=== PATIENT | female | born 1965 | race Caucasian/White ===

== ENCOUNTER 2018-07-02 13:39 | Emergency (ER) | payer MEDICAID ==
[2018-07-02] MEDS ORDERED: TOPICAL LIDOCAINE W/ EPI 5 ML TOP ONE (13:41)
--- NOTE | 2018-07-02 13:46 | Emergency Department Record ---
History of Present Illness - General Chief Complaint: Fall Injury Stated Complaint: FALL INJURY Time Seen by Provider: 07/02/18 13:40 Source: Patient Mode of Arrival: Ambulatory Limitations: No limitations - History of Present Illness Initial Comments: 52 yo female presents by EMS. She tripped over a child's [id number] injuring her right knee. She is on Xarelto. She did not injury her head, neck, chest, back or any other areas. She thinks she is not up to date on her tetanus status. She otherwise has not complaints and has been at her baseline health. She denies and joint pain. She denies numbness or tingling. She moves the knee at her normal level. Complaint: Fall -: Minutes(s) Fall From: Standing When Fall Occurred: Just prior to arrival Fall Witnessed: Yes, by family Place Fall Occurred: Home Loss of Consciousness: None Prolonged Down Time?: No Symptoms Prior to Fall: None Location - Extremities: Right: Knee Quality: Other (No significant pain) Associated Symptoms: Denies - Abiodun Coma Scale Eye Response: (4) Open spontaneously Motor Response: (6) Obeys commands Verbal Response: (5) Oriented Abiodun Total: 15 - Related Data Previous Rx's Medication Instructions Recorded Cephalexin [Keflex] 500 mg PO TID #21 cap 07/02/18 Allergies Allergy/AdvReac Type Severity Reaction Status Date / Time No Known Drug Allergies Allergy Verified 07/02/18 13:40 Review of Systems Constitutional: Denies: Chills, Fever, Malaise, Weakness Eyes: Denies: Eye discharge ENT: Denies: Congestion, Throat pain Respiratory: Denies: Cough, Dyspnea Cardiovascular: Reports: Other (History of atrial fibrillation). Denies: Chest pain, Palpitations, Syncope Endocrine: Denies: Fatigue Gastrointestinal: Denies: Diarrhea, Nausea, Vomiting Genitourinary: Denies: Dysuria Musculoskeletal: Denies: Arthralgia, Back pain, Joint swelling, Myalgia Skin: Reports: Other (Laceration). Denies: Bruising, Change in color Neurological: Denies: Headache Psychiatric: Denies: Anxiety Hematological/Lymphatic: Denies: Easy bleeding, Easy bruising Past Medical History - SOCIAL HISTORY Smoking Status: Former smoker - RESPIRATORY Hx Respiratory Disorders: Yes Hx Asthma: Yes Comment:: bipap - CARDIOVASCULAR Hx Cardio Disorders: Yes Hx Irregular Heartbeat: Yes (afib) - NEURO Hx Neuro Disorders: No - GI Hx GI Disorders: No - Hx Genitourinary Disorders: No - ENDOCRINE Hx Endocrine Disorders: Yes Hx Diabetes: Yes Hx Thyroid Disease: Yes - MUSCULOSKELETAL Hx Musculoskeletal Disorders: No - PSYCH Hx Psych Problems: No - HEMATOLOGY/ONCOLOGY Hx Hematology/Oncology Disorders: No Family Medical History Family Hx Comment (NOT TO BE USED IN PLACE OF ITEMS BELOW): mother-afib Hx Cancer: Father Hx Diabetes: Father, Brother/Sister Hx Stroke: Mother Physical Exam - General General Appearance: Alert, Oriented x3, Cooperative, No acute distress Limitations: No limitations - Head Head exam: Atraumatic, Normocephalic, Normal inspection Head exam detail: negative: Abrasion, Contusion, Hematoma, Laceration - Eye Eye exam: Normal appearance, PERRL. negative: Conjunctival injection, Periorbital swelling, Scleral icterus - ENT ENT exam: Normal exam Ear exam: Normal external inspection Nasal Exam: Normal inspection Mouth exam: Normal external inspection - Neck Neck exam: Normal inspection, Full ROM. negative: Lymphadenopathy, Tenderness - Respiratory Respiratory exam: Normal lung sounds bilaterally. negative: Accessory muscle use, Chest wall tenderness, Decreased breath sounds, Prolonged expiratory, Respiratory distress, Rhonchi, Stridor, Wheezes - Cardiovascular Cardiovascular Exam: Regular rate, Normal rhythm, Normal heart sounds. negative : Diastolic murmur, Systolic murmur Peripheral Pulses: 2+: Radial (R), Radial (L) - GI/Abdominal GI/Abdominal exam: Soft. negative: Distended, Guarding, Rebound, Rigid, Tenderness - Rectal Rectal exam: Deferred - exam: Deferred - Extremities Extremities exam: Full ROM, Normal capillary refill. negative: Normal inspection, Joint swelling, Tenderness Image of Full Body: 1 - 4cm linear laceration, clean without obvious contamination, no visible bone , FB, or tendon - Back Back exam: Reports: Full ROM. Denies: CVA tenderness (R), CVA tenderness (L), Paraspinal tenderness, Tenderness, Vertebral tenderness - Neurological Neurological exam: Alert, Oriented X3 - Psychiatric Psychiatric exam: Normal affect, Normal mood. negative: Agitated, Anxious - Skin Skin exam: Other (laceration 3.5cm) Course - Reevaluation(s) Reevaluation #1: The XR was reviewed No FB or obvious fracture 07/02/18 14:24 Procedure: 4 cm laceration of the anterior leg/knee on the right Wound was cleaned and prepped in sterile fashion with Hibaclens, no residual FB , bone or tendon identified on examination. The wound was copiously irrigated with NS Wound was anesthetized with 4 mL of 1% Lidocaine with epinephrine The laceration was repaired with 7 sutures in interrupted fashion. 3-0 Prolene Patient tolerated the the procedure well without complications. We discussed home care, reasons for immediate return if any concerns, and suture removal in 12-14 days We discussed minimizing bending. Due to her size a knee immobilizer is neither feasible or safe Steristrips were placed as well 07/02/18 15:22 Disposition Disposition: Discharge Clinical Impression: Laceration Disposition: Home, Self-Care Condition: (1) Good Instructions: Laceration (ED) Additional Instructions: Return to the ED if you have any pain, redness, pus, or signs that concern you for infection The sutures should be evaluated for removal in 12- 14 days Do your best not bend your knee Prescriptions: Cephalexin [Keflex] 500 mg PO TID #21 cap Forms: Patient Portal Access Time of Disposition: 14:27 Quality - Quality Measures Quality Measures: N/A - Blood Pressure Screening Does Patient Have Any of the Following: Active Dx of HTN Blood Pressure Classification: Hypertensive Reading Systolic Measurement: 140 Diastolic Measurement: 68 Screening for High Blood Pressure: Patient Exclusion, Hx of HTN [G9744]
[2018-07-02] MEDS ORDERED: Diph,Pert(Acell),Tet Vac 0.5 ML SYR IM ONE (14:24)
--- NOTE | 2018-07-06 06:56 | RADIOLOGY REPORT ---
DATE: 07/02/2018 at 1351. EXAM: RIGHT KNEE, TWO VIEWS. HISTORY: Anterior laceration post fall. TECHNIQUE: AP and lateral views of the right knee are obtained. COMPARISON: None. ENCOUNTER: Initial. FINDINGS: There is normal bone mineralization. No definite acute fracture nor dislocation is seen. Moderate to advanced tricompartmental osteoarthritic changes are present. On the frontal view, there is a somewhat linear ossific density projecting near the level of the lateral epicondyle. No definite donor site is seen. This likely is a spur with fracture fragment. Subcutaneous edema is identified, most pronounced anteriorly. No radiopaque foreign body. IMPRESSION: 1. SOFT TISSUE SWELLING MOST PRONOUNCED ANTERIORLY. NO RADIO-OPAQUE FOREIGN BODY IDENTIFIED. 2. MODERATE TO SEVERE TRICOMPARTMENTAL OSTEOARTHRITIC CHANGES. SOMEWHAT LINEAR OSSIFIC DENSITY PROJECTING AT THE LEVEL OF THE LATERAL EPICONDYLE ON THE AP VIEW ONLY. THIS IS PROBABLY CHRONIC. AN ACUTE FRACTURE FRAGMENT IS LESS LIKELY. 3. POSSIBLE SMALL JOINT EFFUSION. Job Number: [id number] [facility]
== END 2018-07-02 14:52 | disposition home or self-care (01) ==
LOC: ER 13:39
DX: S81.011A Laceration without foreign body, right knee, initial encounter (principal); W18.09XA Striking against other object with subsequent fall, initial encounter; Y92.009 Unspecified place in unspecified non-institutional (private) residence as the place of occurrence of the external cause; I48.91 Unspecified atrial fibrillation; Z87.891 Personal history of nicotine dependence
CPT/HCPCS: 12002; 90715; 96372; 99283; 99284

== ENCOUNTER 2018-07-12 10:45 | Inpatient (IN) | payer MEDICAID ==
[2018-07-12] MEDS ORDERED: IPRATROPIUM/ALBUTEROL (0.5MG/3MG) NEB INH ONE (11:08)
--- NOTE | 2018-07-12 11:19 | Emergency Department Record ---
History of Present Illness - General Chief Complaint: Shortness of breath Stated Complaint: LILIAN Time Seen by Provider: 07/12/18 10:59 Source: Patient, Family Mode of Arrival: Wheelchair Limitations: No limitations - History of Present Illness Initial Comments: The patient is here due to a 5 day hx of a dry cough and SOB at times. She has been using her rescue inhaller with no relief. The patient denies any CP, back pain, pleuritic pain with breathing, fever, sputum, or weight gain. The patient does have a hx of morbid obesity and is on home O2. She also has a hx of Afib and is on Xarelto. MD Complaint: Cough, Shortness of breath Onset/Timin -: Days(s) Known History Of: Asthma, Other Associated Symptoms: Cough Treatments Prior to Arrival: Bronchodilator - Related Data Home Oxygen Therapy: Yes Home Oxygen Amount: 2 Liters Allergies Allergy/AdvReac Type Severity Reaction Status Date / Time No Known Drug Allergies Allergy Verified 07/12/18 10:55 Travel Screening - Travel/Exposure Within Last 30 Days Have you traveled within the last 30 days?: No - Travel/Exposure Within Last Year Have you traveled outside the [place] in the last year?: No - Additonal Travel Details Have you been exposed to anyone with a communicable illness?: No - Travel Symptoms Symptom Screening: None Review of Systems Constitutional: Reports: Malaise. Denies: Chills, Fever Eyes: Denies: Eye discharge ENT: Reports: Congestion Respiratory: Reports: Cough, Dyspnea. Denies: Hemoptysis, Stridor, Wheezes Cardiovascular: Denies: Arrhythmia, Chest pain Endocrine: Denies: Fatigue Gastrointestinal: Denies: Nausea Genitourinary: Denies: Dysuria Musculoskeletal: Denies: Arthralgia Skin: Denies: Bruising Past Medical History - SOCIAL HISTORY Smoking Status: Former smoker Alcohol Use: Rare Drug Use: None - RESPIRATORY Hx Respiratory Disorders: Yes Hx Asthma: Yes Hx Bronchitis: Yes Comment:: bipap - CARDIOVASCULAR Hx Cardio Disorders: Yes Hx Irregular Heartbeat: Yes (afib) - NEURO Hx Neuro Disorders: No - GI Hx GI Disorders: No - Hx Genitourinary Disorders: No - ENDOCRINE Hx Endocrine Disorders: Yes Hx Diabetes: Yes Hx Thyroid Disease: Yes - MUSCULOSKELETAL Hx Musculoskeletal Disorders: No - PSYCH Hx Psych Problems: No Hx Depression: Yes - HEMATOLOGY/ONCOLOGY Hx Hematology/Oncology Disorders: No Family Medical History Any Significant Family History?: No Family Hx Comment (NOT TO BE USED IN PLACE OF ITEMS BELOW): mother-afib Hx Cancer: Father Hx Diabetes: Father, Brother/Sister Hx Stroke: Mother Physical Exam - General General Appearance: Alert, Oriented x3, Cooperative, No acute distress - Head Head exam: Atraumatic, Normocephalic - Eye Eye exam: Normal appearance, PERRL - ENT Throat exam: Normal inspection. negative: Tonsillar erythema, Tonsillar exudate - Neck Neck exam: Normal inspection, Full ROM. negative: Tenderness - Respiratory Respiratory exam: Normal lung sounds bilaterally. negative: Accessory muscle use, Decreased breath sounds, Respiratory distress (The patient is speaking in full sentences with no difficulty or problems.) - Cardiovascular Cardiovascular Exam: Normal heart sounds, Irregular rhythm. negative: Regular rate, Normal rhythm - GI/Abdominal GI/Abdominal exam: Soft, Normal bowel sounds. negative: Tenderness - Extremities Extremities exam: negative: Normal inspection (There are chronic wounds to the L leg.) - Neurological Neurological exam: Alert. negative: Motor sensory deficit Course Vital Signs 07/12/18 10:47 Temperature 97.8 F Pulse Rate 72 Respiratory 18 Rate Blood Pressure 182/83 Pulse Ox 94 L - Reevaluation(s) Reevaluation #1: The patient is doing very well at this time. She is feeling better after the Neb tx. I did discuss the lab work and xray with the patient and did recommend hospital admission which she did agree to. I also did discuss the case with Dr. Mabry and he does agree with the plan. 07/12/18 12:20 Medical Decision Making - Data Complexity MDM Data: Labs Ordered and/or Reviewed, X-Ray Ordered and/or Reviewed, EKG Ordered and/or Reviewed - Lab Data Result diagrams: 07/12/18 11:25 07/12/18 11:25 - EKG Data -: EKG Interpreted by Me EKG: No Acute Changes, Unchanged From Previous - Radiology Data Radiology results: Report reviewed (CXR: Possible bilateral infiltrates with CMG and mild CHF.) Disposition Disposition: Admit Clinical Impression: CHF (congestive heart failure) Qualifiers: Heart failure type: unspecified Heart failure chronicity: unspecified Qualified Code(s): I50.9 - Heart failure, unspecified Pneumonia Qualifiers: Aspiration pneumonia type: unspecified Laterality: unspecified laterality Lung location: unspecified part of lung Disposition: Still a Patient at [facility] Decision to Admit: Admit from ER Decision to Admit Date: 07/12/18 Decision to Admit Time: 12:23 Accepting Physician: Clotilde Time Discussed w/Accepting Physician: 12:23 Condition: (2) Stable Forms: Patient Portal Access Time of Disposition: 12:23 Quality - Quality Measures Quality Measures: N/A - Blood Pressure Screening View Details: Yes Does Patient Have Any of the Following: No Blood Pressure Classification: Pre-Hypertensive BP Reading Systolic Measurement: 182 Diastolic Measurement: 83 Screening for High Blood Pressure: < Pre-Hypertensive BP, F/U Documented > [ [id number]] Pre-Hypertensive Follow-up Interventions: Referral to alternative/primary care provider.
[2018-07-12 11:32] LABS: BASO % 0.2 % (0-6); EOS % 2.3 % (0-6); GRAN % 75.9 % (47-80); HEMATOCRIT 37.7 % (35.0-47.0); HEMOGLOBIN 11.4 gm/dl (11.6-16.0); LYMPH % 15.6 % (16-45); MEAN CELL VOLUME 96.9 fl (81-97); MEAN CORPUSCULAR HEMOGLOBIN 29.3 pg (27-33); MEAN CORPUSCULAR HGB CONC 30.2 g/dl (32-36); MEAN PLATELET VOLUME 10.4 fl (7.4-10.4); PLATELET COUNT 170 K/uL (130-400); RED BLOOD COUNT 3.89 M/uL (3.80-5.40); RED CELL DISTRIBUTION WIDTH 15.2 % (11.5-14.5); WHITE BLOOD COUNT W/O DIFF 5.2 K/uL (4.2-12.2)
[2018-07-12 11:43] LABS: BLOOD UREA NITROGEN 13 mg/dL (6-20); CREATININE 0.7 mg/dL (0.5-0.9); EST GLOMERULAR FILTRATION RATE > 60 mL/min
[2018-07-12 11:44] LABS: INR 1.3; PARTIAL THROMBOPLASTIN TIME 34.4 SECONDS (24.5-39.1); PROTHROMBIN TIME (PATIENT) 12.9 SECONDS (9.5-12.1)
[2018-07-12 11:46] LABS: GLUCOSE,RANDOM 105 mg/dL (74-109)
[2018-07-12] MEDS ORDERED: FUROSEMIDE IV 40MG/4ML VIAL IVP ONE (12:09)
[2018-07-12] MEDS ORDERED: CEFTRIAXONE 1GM/50ML BAG 1 GM/50 ML BAG IVPB ONE (12:19)
[2018-07-12] MEDS ORDERED: AZITHROMYCIN 500 MG TABLET PO ONE (12:19)
[2018-07-12] MEDS ORDERED: RIVAROXABAN 20 MG TABLET PO SCH (13:51)
[2018-07-12] MEDS ORDERED: ATORVASTATIN 20 MG TABLET PO SCH (13:51)
[2018-07-12] MEDS ORDERED: ACETAMINOPHEN 325 MG TAB PO PRN (13:51)
[2018-07-12] MEDS ORDERED: LOSARTAN POTASSIUM 25 MG TABLET PO SCH (13:51)
--- NOTE | 2018-07-12 14:11 | History & Physical ---
History of Present Illness - Date of Service Date of Service for History & Physical: 07/12/18 - History of Present Illness Admitting Diagnosis: 1. Acute CHF. 2. Acute Pneumonia. History of Present Illness: SOB for 5 days with a cough and her inhaler was not helping and she came to the ED and evaluated by Dr. Winston with a diagnosis of bilateral pneumonia and CHF.BNP high and chest read as bilateral infiltrate possible pneumonia right greater than left ,cardiomegaly with minor vascular congestion. PMH home oxygen 2 liters per minute and JR with bipap at night,atrial fib on xarelto, DM type 2 on metformin,hypothyroidism, HTN,Hyperchol,Morbid obesity. patient said last echo 2014 at [facility] and saw meat dresser than but not follow with the meat dresser. Primary is Dr Morse Travel Screening - Travel/Exposure Within Last 30 Days Have you traveled within the last 30 days?: No - Travel/Exposure Within Last Year Have you traveled outside the [place] in the last year?: No - Additonal Travel Details Have you been exposed to anyone with a communicable illness?: No - Travel Symptoms Symptom Screening: None Review of Systems Reviewed: No additional complaints except as noted below Constitutional: Reports: Malaise. Denies: Chills, Fever Eyes: Denies: Eye discharge ENT: Reports: Congestion Respiratory: Reports: Cough, Dyspnea. Denies: Hemoptysis, Stridor, Wheezes Cardiovascular: Denies: Arrhythmia, Chest pain Endocrine: Denies: Fatigue Gastrointestinal: Denies: Nausea Genitourinary: Denies: Dysuria Musculoskeletal: Denies: Arthralgia Skin: Reports: Other (ulcers on legs and seeing the wound clinic appointment is next week.). Denies: Bruising Neurological: Reports: As per HPI. Denies: Abnormal gait, Confusion, Headache, Numbness, Paresthesias, Seizure, Tingling, Tremors, Vertigo, Weakness Psychiatric: Reports: As per HPI. Denies: Anxiety, Auditory hallucinations, Depression, Homicidal thoughts, Suicidal thoughts, Visual hallucinations Hematological/Lymphatic: Reports: As per HPI. Denies: Anemia, Blood Clots, Easy bleeding, Easy bruising, Swollen glands Past Medical History - SOCIAL HISTORY Smoking Status: Former smoker Alcohol Use: Rare Drug Use: None - RESPIRATORY Hx Respiratory Disorders: Yes Hx Asthma: Yes Hx Bronchitis: Yes Comment:: bipap - CARDIOVASCULAR Hx Cardio Disorders: Yes Hx Irregular Heartbeat: Yes (afib) - NEURO Hx Neuro Disorders: No - GI Hx GI Disorders: No - Hx Genitourinary Disorders: No - ENDOCRINE Hx Endocrine Disorders: Yes Hx Diabetes: Yes Hx Thyroid Disease: Yes - MUSCULOSKELETAL Hx Musculoskeletal Disorders: No - PSYCH Hx Psych Problems: No Hx Depression: Yes - HEMATOLOGY/ONCOLOGY Hx Hematology/Oncology Disorders: No Family Medical History Any Significant Family History?: No Family Hx Comment (NOT TO BE USED IN PLACE OF ITEMS BELOW): mother-afib Hx Cancer: Father Hx Diabetes: Father, Brother/Sister Hx Stroke: Mother H&P Meds/Allergies - Allergies Allergies: Allergies Allergy/AdvReac Type Severity Reaction Status Date / Time No Known Drug Allergies Allergy Verified 07/12/18 10:55 - Active Medications Active Medications: Current Medications Acetaminophen (Tylenol 325mg) 650 mg PO Q4H PRN PRN Reason: PAIN - MILD(1-4)/FEVER Albuterol/Ipratropium (Duoneb) 3 ml INH RESP.Q4H.WA ISHMAEL Atorvastatin Calcium (Lipitor) 40 mg PO QD ISHMAEL Azithromycin (Zithromax) 250 mg PO DAILY ISHMAEL Diltiazem HCl (Cardizem Cd) 240 mg PO DAILY ISHMAEL Furosemide (Lasix Iv) 20 mg IVP BIDDIUR ISHMAEL CEFTRIAXONE 1GM/50ML BAG (Ceftriaxone 1 Gm-D5w Bag) 1 gm in 50 mls @ 100 mls/ hr IVPB Q12H ISHMAEL Levothyroxine Sodium (Synthroid) 100 mcg PO DAILYTHY ISHMAEL Losartan Potassium (Cozaar) 25 mg PO QD ISHMAEL Metformin HCl (Glucophage Ir) 500 mg PO BIDINS ISHMAEL Non-Formulary Medication (Sertraline Hcl [Sertraline Hcl]) 100 mg PO QD ISHMAEL Rivaroxaban (Xarelto) 20 mg PO QD ISHMAEL Sertraline HCl (Zoloft) 50 mg PO BID ISHMAEL Physical Exam - Vital Signs Vital Signs: Vital Signs - Last 24 Hrs Temp Pulse Pulse Resp BP BP Pulse Ox 07/12/18 13:44 21 96 07/12/18 13:31 70 21 175/77 96 07/12/18 12:30 65 20 167/69 96 07/12/18 12:00 67 21 154/83 96 07/12/18 11:31 88 18 95 07/12/18 10:47 97.8 F 72 18 182/83 94 L - General General Appearance: Alert, Oriented x3, Cooperative, No acute distress Limitations: No limitations - Head Head exam: Atraumatic, Normocephalic Head exam detail: negative: Abrasion, Contusion - Eye Eye exam: Normal appearance, PERRL Pupils: Normal accommodation - ENT ENT exam: Normal exam, Mucous membranes moist, Normal external ear exam, Normal orophraynx, TM's normal bilaterally Ear exam: Normal external inspection. negative: External canal tenderness Nasal Exam: Normal inspection. negative: Discharge, Sinus tenderness Mouth exam: Normal external inspection, Tongue normal Teeth exam: Normal inspection. negative: Dental caries Throat exam: Normal inspection. negative: Tonsillar erythema, Tonsillar exudate - Neck Neck exam: Normal inspection, Full ROM. negative: Tenderness - Respiratory Respiratory exam: Normal lung sounds bilaterally, Decreased breath sounds. negative: Accessory muscle use, Respiratory distress (The patient is speaking in full sentences with no difficulty or problems.) - Cardiovascular Cardiovascular Exam: Normal heart sounds, Irregular rhythm. negative: Regular rate, Normal rhythm - GI/Abdominal GI/Abdominal exam: Soft, Normal bowel sounds. negative: Tenderness - Rectal Rectal exam: Deferred - exam: Deferred - Extremities Extremities exam: negative: Normal inspection (There are chronic wounds to the L leg.) - Back Back exam: Reports: Normal inspection, Full ROM. Denies: Muscle spasm, Rash noted, Tenderness - Neurological Neurological exam: Alert. negative: Motor sensory deficit - Psychiatric Psychiatric exam: Normal affect, Normal mood - Skin Skin exam: Dry, Intact, Normal color, Warm Results - Labs Result Diagrams: 07/12/18 11:25 07/12/18 11:25 Labs Last 24 Hours: Laboratory Results - last 24 hr 07/12/18 07/12/18 07/12/18 11:25 11:25 11:25 WBC 5.2 RBC 3.89 Hgb 11.4 L Hct 37.7 MCV 96.9 MCH 29.3 MCHC 30.2 L RDW 15.2 H Plt Count 170 MPV 10.4 Gran % 75.9 Lymphocytes % 15.6 L Monocytes % 6.0 Eosinophils % 2.3 Basophils % 0.2 PT 12.9 H INR 1.3 APTT 34.4 Sodium 141 Potassium 4.0 Chloride 103 Carbon Dioxide 27.0 Anion Gap 11.0 BUN 13 Creatinine 0.7 Estimated GFR > 60 Random Glucose 105 Calcium 9.2 Troponin T NT-Pro-B Natriuret Pep 1225.00 H Procalcitonin 07/12/18 07/12/18 11:25 11:25 WBC RBC Hgb Hct MCV MCH MCHC RDW Plt Count MPV Gran % Lymphocytes % Monocytes % Eosinophils % Basophils % PT INR APTT Sodium Potassium Chloride Carbon Dioxide Anion Gap BUN Creatinine Estimated GFR Random Glucose Calcium Troponin T < 0.010 NT-Pro-B Natriuret Pep Procalcitonin 0.076 VTE H&P Assessment - Risk for VTE Risk for VTE: Yes Risk Level: Moderate Risk Assessment Date: 07/12/18 Risk Assessment Time: 14:13 VTE Orders Placed or Will Be Placed: Yes Plan - Inpatient Certification Inpatient Certification: Admit to inpatient care: Based on my medical assessment, after consideration of patient's risk factors (age, co-morbidities and patient presenting symptoms and acuity), I expect that this patient will remain in the hospital greater than or equal to two midnights and that the services needed warrant inpatient care because:IV lasix and IV antibiotics Patient Risk Factors: [] Estimated length of stay: [3 days] The patient may reasonably be expected to be discharged or transferred to a hospital within 96 hours after admission to [facility]. Services needed: [IV lasix and IV antibiotis] Post hospital care (if known): [] I certify that my determination is in accordance with my understanding of Medicare requirements for reasonable and necessary inpatient services. 07/12/18 14:20 - Detailed Diagnosis and Plan (1) Atrial fibrillation Current Visit: Yes Status: Acute Qualifiers: Atrial fibrillation type: chronic Qualified Code(s): I48.2 - Chronic atrial fibrillation Base Code: I48.91 - UNSPECIFIED ATRIAL FIBRILLATION Priority: Medium (2) CHF (congestive heart failure) Current Visit: Yes Status: Acute Qualifiers: Heart failure type: unspecified Heart failure chronicity: unspecified Qualified Code(s): I50.9 - Heart failure, unspecified Base Code: I50.9 - HEART FAILURE, UNSPECIFIED Priority: High (3) Pneumonia Current Visit: Yes Status: Acute Qualifiers: Aspiration pneumonia type: unspecified Laterality: unspecified laterality Lung location: unspecified part of lung Base Code: J18.9 - PNEUMONIA, UNSPECIFIED ORGANISM Priority: High (4) JR treated with BiPAP Current Visit: Yes Status: Acute Base Code: G47.33 - OBSTRUCTIVE SLEEP APNEA (ADULT) (PEDIATRIC) Priority: Medium (5) Hypertension Current Visit: Yes Status: Acute Base Code: I10 - ESSENTIAL (PRIMARY) HYPERTENSION Priority: Medium (6) Hypothyroidism Current Visit: Yes Status: Acute Base Code: E03.9 - HYPOTHYROIDISM, UNSPECIFIED Priority: Medium (7) Asthma Current Visit: Yes Status: Acute Base Code: J45.909 - UNSPECIFIED ASTHMA, UNCOMPLICATED Priority: High (8) Hypercholesteremia Current Visit: Yes Status: Acute Base Code: E78.00 - PURE HYPERCHOLESTEROLEMIA, UNSPECIFIED Priority: Medium (9) Morbid obesity Current Visit: Yes Status: Acute Base Code: E66.01 - MORBID (SEVERE) OBESITY DUE TO EXCESS CALORIES Priority: Medium - Disposition return home
[2018-07-12] MEDS: IPRATROPIUM/ALBUTEROL (0.5MG/3MG) NEB INH SCH ×3 (14:23→23:52)
[2018-07-12] MEDS ORDERED: SERTRALINE HCL 50 MG TABLET PO SCH ×2 (14:30→22:00)
[2018-07-12] MEDS: DILTIAZEM 240 MG CAP CR PO SCH (15:26)
[2018-07-12] MEDS ORDERED: FUROSEMIDE IV 20MG/2ML VIAL IVP SCH (16:00)
[2018-07-12] MEDS ORDERED: METFORMIN 500 MG TABLET PO SCH (17:15)
[2018-07-13] MEDS: CEFTRIAXONE 1GM/50ML BAG 1 GM/50 ML BAG IVPB SCH ×2 (01:24→13:52)
[2018-07-13] MEDS: IPRATROPIUM/ALBUTEROL (0.5MG/3MG) NEB INH SCH ×3 (05:43→14:33)
[2018-07-13] MEDS ORDERED: LEVOTHYROXINE SODIUM 100 MCG TABLET PO SCH (07:00)
--- NOTE | 2018-07-13 07:55 | RADIOLOGY REPORT ---
EXAM: CHEST, TWO VIEWS HISTORY: SHORTNESS OF BREATH FOR THE PAST FIVE DAYS. WORSENING SYMPTOMS TODAY. TECHNIQUE: PA and lateral upright views of the chest were obtained. Comparison: 11/19/17. FINDINGS: There are low lung volumes. The heart is mildly enlarged. The mediastinum is otherwise normal. There is mild prominence of the pulmonary vasculature. There are patchy areas of infiltrate within the right lung involving the upper and lower lobes. These are greatest within the right lower lobe with focal areas of consolidation. These have a somewhat nodular configuration. Follow-up is recommended to confirm clearing. Mild infiltrates are also noted at the left lung base. There is no pneumothorax or visible effusion. The bones appear intact. IMPRESSION: 1. BILATERAL PULMONARY INFILTRATES, RIGHT GREATER THAN LEFT. THERE ARE FOCAL AREAS OF CONSOLIDATION WITHIN THE RIGHT LOWER LOBE. FOLLOW-UP IS RECOMMENDED TO CONFIRM CLEARING. 2. CARDIOMEGALY WITH MINOR VASCULAR CONGESTION. JOB NUMBER: [id number] MTDD
[2018-07-13] MEDS ORDERED: FUROSEMIDE IV 20MG/2ML VIAL IVP SCH ×2 (08:00→10:00)
[2018-07-13 09:25] LABS: BLOOD UREA NITROGEN 12 mg/dL (6-20); CREATININE 0.8 mg/dL (0.5-0.9); EST GLOMERULAR FILTRATION RATE > 60 mL/min
[2018-07-13 09:28] LABS: GLUCOSE,RANDOM 110 mg/dL (74-109)
[2018-07-13] MEDS ORDERED: AZITHROMYCIN 250 MG TABLET PO SCH (10:00)
[2018-07-13] MEDS ORDERED: LOSARTAN POTASSIUM 25 MG TABLET PO SCH (10:00)
[2018-07-13] MEDS ORDERED: SERTRALINE HCL 50 MG TABLET PO SCH (10:00)
[2018-07-13] MEDS ORDERED: RIVAROXABAN 20 MG TABLET PO SCH (10:00)
[2018-07-13] MEDS ORDERED: AZITHROMYCIN 500 MG TABLET PO SCH (10:00)
[2018-07-13] MEDS ORDERED: METFORMIN 500 MG TABLET PO SCH (10:00)
[2018-07-13] MEDS ORDERED: ATORVASTATIN 20 MG TABLET PO SCH (10:00)
[2018-07-13] MEDS: FUROSEMIDE IV 40MG/4ML VIAL IVP SCH ×2 (10:39→13:59)
[2018-07-13] MEDS: DILTIAZEM 240 MG CAP CR PO SCH (10:39)
--- NOTE | 2018-07-13 16:11 | Discharge Note ---
VTE H&P Assessment - Risk for VTE Risk for VTE: Yes Risk Level: Moderate Risk Assessment Date: 07/12/18 Risk Assessment Time: 14:13 VTE Orders Placed or Will Be Placed: Yes Discharge Medications - Discharge Medications Prescriptions: Azithromycin [Zithromax] 250 mg PO DAILY #6 tab Furosemide [Lasix] 40 mg PO DAILY #30 tablet Furosemide [Lasix] 40 mg PO DAILY #30 tablet Potassium Chloride 20 meq PO DAILY #30 tab.er.prt Potassium Chloride 20 meq PO DAILY #30 tab.er.prt Home Medications: Ambulatory Orders Ascorbic Acid [Vitamin C] 500 mg PO DAILY tab 02/08/16 [Last Taken 07/12/18] Multivitamin [One-Daily Multi-Vitamin] 1 each PO DAILY tab 02/08/16 [Last Taken 07/12/18] Azithromycin [Zithromax] 250 mg PO DAILY #6 tab 07/13/18 [Last Taken Unknown] Furosemide [Lasix] 40 mg PO DAILY #30 tablet 07/13/18 [Last Taken Unknown] Furosemide [Lasix] 40 mg PO DAILY #30 tablet 07/13/18 [Last Taken Unknown] Potassium Chloride 20 meq PO DAILY #30 tab.er.prt 07/13/18 [Last Taken Unknown] Potassium Chloride 20 meq PO DAILY #30 tab.er.prt 07/13/18 [Last Taken Unknown] Discharge Note - Date Date of Discharge Note: 07/13/18 Disposition: Home, Self-Care Condition: (2) Stable Additional Instructions: follow up with Dr. Morse in 5- 7 days follow up cardiology Dr Carnes in one month take azithromycin 250 mg daily till gone take lasix 40 mg daily take potassium chloride 20 meq daily Forms: Patient Portal Access Activity at Discharge: Increase Activity as Tolerated Diet at Discharge: Low Salt Diet
--- NOTE | 2018-07-14 05:25 | Cardiology Consult ---
DATE OF CONSULTATION: 07/13/18 REASON FOR CONSULTATION: Elevated BNP and CHF. HISTORY OF PRESENT ILLNESS: Ms. Drake is a very pleasant 52-year-old female with a history of chronic atrial fibrillation, obstructive sleep apnea on C-PAP , hypertension, hypothyroidism, hyperlipidemia, and chronic lymphedema as well as morbid obesity who presented to [facility] on Friday with complaints of shortness of breath. She felt acute shortness of breath on Friday , however, had been noticing increasing shortness of breath for five days prior to that. She reports a dry cough as well as chills. She does have chronic lymphedema, but was noticing increased peripheral edema. She denies any recent chest pain or pressure, palpitations, PND or syncope. Chest x-ray on admission showed bilateral pulmonary infiltrates right greater than left as well as cardiomegaly with minor vascular congestion. Her Pro-BNP level was elevated at 749. Her cardiac enzymes are negative. EKG showed rate controlled atrial fibrillation with low voltage and poor R-wave progression. She has been started on Azithromycin and Ceftriaxone for a community acquired pneumonia. She has also been started on IV Lasix 40 mg b.i.d. for diuresis and had 4200 ml of output overnight. Her blood pressure has been well controlled during this hospitalization. She has no known history of coronary artery disease. She does have Type 2 diabetes mellitus. Her mother had a history of CHF. She is a former smoker, quitting twenty-seven years ago. She drinks alcohol rarely. She was diagnosed with atrial fibrillation in 2014 during a hospitalization at [facility]. At that time she was in the ICU and was offered a cardioversion, however, due to concern regarding anesthesia she did not wish to pursue this and has not been offered cardioversion again. She has been on Xarelto for CVA prophylaxis and she is on Cardizem for rate control. Transthoracic echocardiogram was completed today. PAST MEDICAL HISTORY: 1. Obstructive sleep apnea. 2. Hypertension. 3. Hypothyroidism. 4. Hyperlipidemia. 5. Chronic atrial fibrillation. 6. Lymphedema. 7. Type 2 diabetes mellitus. MEDICATION ALLERGIES: No known drug allergies. SOCIAL HISTORY: She is a former smoker quitting twenty-seven years ago and uses alcohol occasionally. FAMILY HISTORY: Her mother had a history of CHF. HOSPITAL MEDICATIONS: Atorvastatin 40 mg daily, Azithromycin, Ceftriaxone, Cardizem 240 mg once daily, Lasix 40 mg IV b.i.d., Losartan 25 mg daily, Metformin and Xarelto. OBJECTIVE: Blood pressure 136/78, respirations 16, pulse 68, O2 saturation 94% on two liters, weight 497 pounds, I&O -4,250 ml in twenty-four hours. LABS: WBC 5.2, hemoglobin 11.4, hematocrit 37.7, platelets 170, sodium 142, potassium 3.5, chloride 102, CO2 25, BUN 12, creatinine 0.8, glucose 112, Pro BNP 749, Troponin negative times two. IMAGING: Chest x-ray showed bilateral pulmonary infiltrates right greater than left with a focal consolidation in the right lower lobe as well as cardiomegaly with minor vascular congestion. EKG showed atrial fibrillation, rate 63 b.p.m. , low voltage and poor R-wave progression. Transthoracic echocardiogram showed normal LV function, unable to determine diastolic function secondary to TDS from body habitus, EF 55-60%, mild left atrial enlargement and PISP 41 mmHg. PHYSICAL EXAMINATION: GENERAL: Alert and oriented times three. On supplemental oxygen by nasal cannula, obese. HEENT: Normocephalic, atraumatic. Pupils are equal, round and reactive to light. CARDIAC: Irregularly irregular rhythm, normal rate, no murmurs, rubs or gallops , plus S1 and S2, diminished heart sounds. LUNGS: Clear to auscultation bilaterally, diminished breath sounds, normal respiratory effort. ABDOMEN: Soft, nontender with active bowel sounds. EXTREMITIES: 1-2+ bilateral lower extremity edema. NEUROLOGICAL: Cranial nerves II through XII grossly intact. PSYCHOLOGICAL: Appropriate mood and affect. ASSESSMENT AND PLAN: 1. ACUTE DIASTOLIC CHF. 2. COMMUNITY ACQUIRED PNEUMONIA. 3. CHRONIC ATRIAL FIBRILLATION, RATE CONTROLLED. 4. HYPERTENSION, CONTROLLED. 5. OBSTRUCTIVE SLEEP APNEA, COMPLIANT WITH C-PAP. 6. HYPOTHYROIDISM. 7. HYPERLIPIDEMIA. 8. TYPE 2 DIABETES MELLITUS. 9. LYMPHEDEMA. PLAN: Agree with IV Lasix 40 mg b.i.d. for diuresis. Monitor I&O's as well as daily weights while admitted. Continue IV diuretics while she is admitted to the hospital and upon discharge will prescribe Lasix 40 mg once daily along with potassium chloride 20 mEq once daily. Continue Cardizem CD 240 mg once daily for rate control for atrial fibrillation and continue Xarelto for CVA prophylaxis. She is also on Losartan 25 mg daily and her blood pressure is well controlled. Would recommend stress testing as an outpatient to insure that diastolic dysfunction is not secondary to ischemia. Unfortunately our office does not participate with her insurance, therefore, she was scheduled to follow-up with Dr. Urrutia on 08/13/18 at 4:00 p.m. and their address and phone number were given to her to make changes to that if needed. She is stable from a cardiac standpoint for discharge. Please call if any further questions or concerns. JOB NUMBER: [id number] MTDD
--- NOTE | 2018-07-14 09:00 | Discharge Summary ---
DATE OF DISCHARGE: 07/13/2018 at 4:15 p.m. DISCHARGE DIAGNOSES: 1. Fluid overload. 2. Diastolic heart failure. 3. Possible pneumonia, unlikely. 4. Diabetes mellitus type 2. 5. Morbid obesity. 6. Atrial fibrillation, on Xarelto. 7. Sleep apnea with BiPAP. 8. Hypercholesterolemia. 9. Hypertension. 10. Hypothyroidism. 11. Asthma. ATTENDING PHYSICIAN: Thiago Mabry DO REASON FOR HOSPITALIZATION: Short of breath for the last 5 days, dry cough. Rescue inhaler was not working. Came into the hospital, evaluated by Dr. Winston, admitted to the hospital for congestive heart failure and pneumonia. SIGNIFICANT FINDINGS: The patient had serial EKGs showing no acute changes with atrial fibrillation. Chest x-ray, bilateral pulmonary infiltrates right greater than left. There are focal areas of consolidation in the right lower lung. Followup is recommended to confirm clearing cardiomegaly with minor vascular congestion. Echocardiogram revealed ejection fraction of 55% to 60%, mild pulmonary hypertension. Technically difficult exam because of her size. Mild left atrial enlargement. RVSP was 41 mmHg. Consultation with Cardiology. Seen by the nurse practitioner who recommended Lasix orally and potassium and follow up with Dr. Flores because their group does not participate with her insurance, and we will have her follow up with Dr. Morse and his group for the pneumonia/bronchitis, more likely CHF, diastolic, and fluid overload. THERAPY PROVIDED: The patient was given IV Lasix. She diuresed off 7 pounds and more today. She is breathing much better, more comfortable, not coughing. CONDITION ON DISCHARGE: Much improved. DISCHARGE INSTRUCTIONS: Follow up with Dr. Morse's group in 5-7 days. Follow up with Dr. Flores in 1 month for further evaluation of cardiac disease. Continue the Xarelto and her home medication for diabetes mellitus. New medications are Lasix 40 mg a day, potassium chloride 20 mEq a day. Continue her home medications of sertraline 100 mg daily, Xarelto 20 mg daily, multivitamins 1 a day, metformin 500 b.i.d., losartan 25 mg a day, levothyroxine 100 mcg daily, diltiazem 240 mg daily, atorvastatin 40 mg daily, ascorbic acid 500 mg daily, ProAir 2 puffs q.4 h. p.r.n., potassium chloride 20 mEq daily, Lasix 40 mg daily, added on azithromycin 250 daily for 6 days. MTDD
== END 2018-07-13 17:00 | disposition home or self-care (01) | DRG 291 ==
LOC: ER 10:45 → MEDSURG 13:26
PROVIDERS: ADMIT Emergency Medicine; ATTEND Emergency Medicine
DX: I50.9 Heart failure, unspecified (principal); J18.9 Pneumonia, unspecified organism; I48.2 Chronic atrial fibrillation; Z79.01 Long term (current) use of anticoagulants; I10 Essential (primary) hypertension; E11.9 Type 2 diabetes mellitus without complications; E03.9 Hypothyroidism, unspecified; E78.00 Pure hypercholesterolemia, unspecified; E66.01 Morbid (severe) obesity due to excess calories; G47.33 Obstructive sleep apnea (adult) (pediatric); L98.491 Non-pressure chronic ulcer of skin of other sites limited to breakdown of skin; J45.909 Unspecified asthma, uncomplicated; Z87.891 Personal history of nicotine dependence; Z99.81 Dependence on supplemental oxygen
CPT/HCPCS: 71046; 80048; 83880; 84145; 84484; 85025; 85610; 85730; 90686; 93005; 93010; 93306; 94640; 94761; 96365; 96375; 99223; 99239; 99285; J0696; J1940